=== PATIENT | female | born 1960 | race Caucasian/White ===

== ENCOUNTER 2017-12-25 14:47 | Emergency (ER) | payer OTHER ==
[2017-12-25] MEDS ORDERED: NA CHLORIDE 0.9% 500 ML ONE (15:28)
[2017-12-25] MEDS ORDERED: DEXAMETHASONE 10 MG/ML VIAL ONE (15:28)
--- NOTE | 2017-12-25 15:55 | RAD REPORT ---
EXAM DESCRIPTION: CT - Head Brain Wo Cont - 12/25/2017 3:35 pm CLINICAL HISTORY: Right-sided headache, right-sided numbness COMPARISON: None. TECHNIQUE: Axial 5 mm thick images of the head were obtained without IV contrast. All CT scans are performed using dose optimization technique as appropriate and may include automated exposure control or mA/KV adjustment according to patient size. FINDINGS: No intracranial hemorrhage, mass, edema or shift of mid-line structures. No acute infarcti on changes seen. No abnormal extra-axial fluid collections. Ventricles are normal. Mastoid air cells and visualized portions of the paranasal sinuses are clear. No acute bony findings. IMPRESSION: Negative non-contrast CT head examination.
--- NOTE | 2017-12-25 16:05 | ER ---
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 Transition of care: patient was not received from another setting of care. Onset of symptoms was December 25, 2017. Risk Assessment: Do you want to hurt yourself or someone else? Patient reports no desire to harm self or others. Initial Sepsis Screen: Does the patient meet any 2 criteria? No. Patient's initial sepsis screen is negative. Does the patient have a suspected source of infection? No. Patient's initial sepsis screen is negative. Care prior to arrival: None. 14:51 Method Of Arrival: Ambulatory 14:51 Acuity: DARLENE 3 hj Triage Assessment: 14:57 General: Appears in no apparent distress. uncomfortable, Behavior is calm, cooperative, hj appropriate for age. Pain: Complains of pain in R side of head. 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 - Social history:: Smoking status: Patient/guardian denies using tobacco, Patient/guardian denies using alcohol. - Ebola Screening: : Patient negative for fever greater than or equal to 101.5 degrees Fahrenheit, and additional compatible Ebola Virus Disease symptoms Patient denies exposure to infectious person Patient denies travel to an Ebola-affected area in the 21 days before illness onset. - Family history:: not pertinent. - Hospitalizations: : No recent hospitalization is reported. Screenin:57 Abuse screen: Denies threats or abuse. Denies injuries from another. Nutritional hj screening: No deficits noted. Tuberculosis screening: No symptoms or risk factors identified. Fall Risk None identified. Assessment: 15:15 General: Appears comfortable, Behavior is calm, cooperative. Pain: Complains of pain in aa5 right frontal area and right temporal area Pain does not radiate. Pain currently is 10 out of 10 on a pain scale. Quality of pain is described as throbbing, numb, Pain began 2-3 weeks ago Is continuous. Neuro: Level of Consciousness is awake, alert, obeys commands, Oriented to person, place, time, situation, [employer]er are equal bilaterally Moves all extremities. Gait is steady, Speech is normal, Facial symmetry appears normal, Pupils are PERRLA, Denies weakness dizziness, paresthesias denies facial numbness . Cardiovascular: Heart tones S1 S2 present Rhythm is regular. Respiratory: Airway is patent Respiratory effort is even, unlabored, Respiratory pattern is regular, symmetrical. GI: No signs and/or symptoms were reported involving the gastrointestinal system. : No signs and/or symptoms were reported regarding the genitourinary system. EENT: No signs and/or symptoms were reported regarding the EENT system. Derm: Skin is pink, warm \\T\\ dry. Musculoskeletal: Range of motion: intact in all extremities. 15:40 Reassessment: Patient and/or family updated on plan of care and expected duration. Pain aa5 level reassessed. Patient is alert, oriented x 3, equal unlabored respirations, skin warm/dry/pink. Pt back from CT . 16:35 Reassessment: Patient is alert, oriented x 3, equal unlabored respirations, skin aa5 warm/dry/pink. 16:35 Pain: Pain currently is 9 out of 10 on a pain scale. aa5 Vital Signs: 14:57 BP 133 / 82; Pulse 80; Resp 18; Temp 97.6(O); Pulse Ox 100% on R/A; Weight 86.18 kg; hj Height 5 ft. 1 in. (154.94 cm); Pain 10/10; 15:50 BP 101 / 68; Pulse 68; Resp 16 S; Pulse Ox 98% on R/A; aa5 16:18 BP 115 / 68; Pulse 60; Resp 16 S; Pulse Ox 99% on R/A; aa5 14:57 Body Mass Index 35.90 (86.18 kg, 154.94 cm) ED Course: 14:51 Patient arrived in ED. mr 14:54 Triage completed. hj 14:57 Arm band placed on right wrist. hj 14:59 Patient has correct armband on for positive identification. Placed in gown. Bed in low hj position. Call light in reach. 15:01 Etta Rolle, EFFIE is Primary Nurse. aa5 15:04 Kameron Richmond MD is Attending Physician. rn 15:22 No provider procedures requiring assistance completed. aa5 15:28 Inserted saline lock: 20 gauge in left forearm, using aseptic technique. aa5 15:[address] via wheelchair. vm2 15:34 CT completed. Patient tolerated procedure well. Patient moved back from CT. vm2 15:35 CT Head Brain wo Cont In Process Unspecified. EDPR 16:04 Spike Santiago MD is Referral Physician. rn 16:35 IV discontinued, intact, bleeding controlled, No redness/swelling at site. Pressure aa5 dressing applied. Administered Medications: 15:30 Drug: Decadron - Dexamethasone 10 mg Route: IVP; Site: left forearm; aa5 15:33 Follow up: Response: No adverse reaction aa5 15:40 Drug: NS 0.9% 500 ml Route: IV; Rate: bolus; Site: left forearm; aa5 16:18 Follow up: IV Status: Completed infusion aa5 16:17 Drug: TORadol 30 mg Route: IVP; Site: left forearm; aa5 16:25 Follow up: Response: No adverse reaction aa5 Outcome: 16:04 Discharge ordered by . rn 16:35 Discharged to home ambulatory. aa5 16:35 Condition: stable 16:35 Discharge instructions given to patient, Instructed on discharge instructions, follow up and referral plans. medication usage, Demonstrated understanding of instructions, follow-up care, medications, Prescriptions given X 1. 16:38 Patient left the ED. aa5 Signatures: Dispatcher [employer] [facility] Kaye Mack mr Kameron Richmond MD MD rn Calderon, Audri, RN RN [facility] Donald Meier RN RN Lissette Nielson vm2 Corrections: (The following items were deleted from the chart) 14:59 14:57 Pulse 80bpm; Resp 18bpm; Pulse Ox 100% RA; Temp 97.6F Oral; 86.18 kg; Height 5 hj ft. 1 in.; BMI: 35.9; Pain 10/10; hj 15:31 15:28 Inserted saline lock: 20 gauge in left antecubital area, using aseptic technique. aa5 aa5
--- NOTE | 2017-12-25 16:06 | EDPHYS ---
Physician Documentation [facility] Name: Samina Osborn Age: 57 yrs Sex: Female : 1960 Arrival Date: 12/25/2017 Time: 14:51 Bed 14 Private MD: ED Physician Kameron Richmond HPI: 12/25 15:59 This 57 yrs old Female presents to ER via Ambulatory with complaints of rn Numbness Of Face. 15:59 This 57 yrs old Female presents to ER via Ambulatory with complaints of rn Numbness Of scalp. 15:59 The patient's problem is reported as paresthesias. Onset: The symptoms/episode rn began/occurred 2 week(s) ago. Duration: The episode is continuous. The symptoms are alleviated by nothing. The symptoms are aggravated by nothing. Severity of symptoms: At their worst the symptoms were moderate in the emergency department the symptoms are unchanged. The patient has not experienced similar symptoms in the past. The patient has not recently seen a physician. Reports headache and right scalp numbness for 2-3 weeks, constant, daily, able to sleep, + hx of migraines, no head trauma, no vomiting, no weakness/numbness elsewhere, no vision changes. . 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 - Social history:: Smoking status: Patient/guardian denies using tobacco, Patient/guardian denies using alcohol. - Ebola Screening: : Patient negative for fever greater than or equal to 101.5 degrees Fahrenheit, and additional compatible Ebola Virus Disease symptoms Patient denies exposure to infectious person Patient denies travel to an Ebola-affected area in the 21 days before illness onset. - Family history:: not pertinent. - Hospitalizations: : No recent hospitalization is reported. ROS: 15:59 Constitutional: Negative for fever, chills, and weight loss, Eyes: Negative for injury, rn pain, redness, and discharge, Neck: Negative for injury, pain, and swelling, Cardiovascular: Negative for chest pain, palpitations, and edema, Respiratory: Negative for shortness of breath, cough, wheezing, and pleuritic chest pain, Abdomen/GI: Negative for abdominal pain, nausea, vomiting, diarrhea, and constipation, MS/Extremity: Negative for injury and deformity, Skin: Negative for injury, rash, and discoloration, Neuro: Negative for weakness, and seizure. Exam: 15:59 Radiologist reports: no acute findings rn 16:03 Constitutional: This is a well developed, well nourished patient who is awake, alert, rn and in no acute distress. Head/Face: Normocephalic, atraumatic. Eyes: Pupils equal round and reactive to light, extra-ocular motions intact. Lids and lashes normal. Conjunctiva and sclera are non-icteric and not injected. Cornea within normal limits. Periorbital areas with no swelling, redness, or edema. Neck: Trachea midline, no thyromegaly or masses palpated, and no cervical lymphadenopathy. Supple, full range of motion without nuchal rigidity, or vertebral point tenderness. No Meningismus. Cardiovascular: Regular rate and rhythm with a normal S1 and S2. No gallops, murmurs, or rubs. Normal PMI, no JVD. No pulse deficits. Respiratory: Lungs have equal breath sounds bilaterally, clear to auscultation and percussion. No rales, rhonchi or wheezes noted. No increased work of breathing, no retractions or nasal flaring. Abdomen/GI: Soft, non-tender, with normal bowel sounds. No distension or tympany. No guarding or rebound. No evidence of tenderness throughout. Skin: Warm, dry with normal turgor. Normal color with no rashes, no lesions, and no evidence of cellulitis. MS/ Extremity: Pulses equal, no cyanosis. Neurovascular intact. Full, normal range of motion. Equal circumference. Neuro: Awake and alert, GCS 15, oriented to person, place, time, and situation. Cranial nerves II-XII grossly intact. Motor strength 5/5 in all extremities. Sensory grossly intact. Cerebellar exam normal. Normal gait. + paresthesias over right scalp, not involving face Vital Signs: 14:57 BP 133 / 82; Pulse 80; Resp 18; Temp 97.6(O); Pulse Ox 100% on R/A; Weight 86.18 kg; hj Height 5 ft. 1 in. (154.94 cm); Pain 10/10; 15:50 BP 101 / 68; Pulse 68; Resp 16 S; Pulse Ox 98% on R/A; aa5 16:18 BP 115 / 68; Pulse 60; Resp 16 S; Pulse Ox 99% on R/A; aa5 14:57 Body Mass Index 35.90 (86.18 kg, 154.94 cm) hj MDM: 15:04 Patient medically screened. rn 16:03 Differential diagnosis: metabolic disorder, trigeminal neuralgia, neuropathy, rn complicated migraine. Data reviewed: vital signs, nurses notes, radiologic studies, CT scan, and as a result, I will discharge patient. Counseling: I had a detailed discussion with the patient and/or guardian regarding: the historical points, exam findings, and any diagnostic results supporting the discharge/admit diagnosis, radiology results, the need for outpatient follow up, to return to the emergency department if symptoms worsen or persist or if there are any questions or concerns that arise at home. Special discussion: I discussed with the patient/guardian in detail that at this point there is no indication for admission to the hospital. It is understood, however, that if the symptoms persist or worsen the patient needs to return immediately for re-evaluation. 16:03 Special discussion: Based on the history and exam findings, there is no indication for rn further emergent testing or inpatient evaluation. I discussed with the patient/guardian the need to see the neurologist for further evaluation of the symptoms. 12/25 15:14 Order name: CT Head Brain wo Cont; Complete Time: 15:59 rn 12/25 15:14 Order name: IV Start; Complete Time: 15:30 rn Administered Medications: 15:30 Drug: Decadron - Dexamethasone 10 mg Route: IVP; Site: left forearm; aa5 15:33 Follow up: Response: No adverse reaction aa5 15:40 Drug: NS 0.9% 500 ml Route: IV; Rate: bolus; Site: left forearm; aa5 16:18 Follow up: IV Status: Completed infusion aa5 16:17 Drug: TORadol 30 mg Route: IVP; Site: left forearm; aa5 16:25 Follow up: Response: No adverse reaction aa5 Disposition: 12/25/17 16:04 Discharged to Home. Impression: Headache, Paresthesia of skin. - Condition is Stable. - Discharge Instructions: General Headache Without Cause, Paresthesia. - Prescriptions for Medrol (Moi) 4 mg Oral Tablets, Dose Pack - take 1 tablet by ORAL route as directed - follow package instructions; 1 packet. - Medication Reconciliation Form, Thank You Letter, Antibiotic Education, Prescription Opioid Use form. - Follow up: Spike Santiago MD; When: As needed; Reason: Recheck today's complaints, Re-evaluation by your physician. - Problem is an ongoing problem. - Symptoms have improved. Signatures: Dispatcher [employer] EDMS Kameron Richmond MD MD rn Calderon, Audri RN RN aa5 Donald Meier RN RN Corrections: (The following items were deleted from the chart) 16:38 16:04 12/25/2017 16:04 Discharged to Home. Impression: Headache; Paresthesia of skin. aa5 Condition is Stable. Forms are Medication Reconciliation Form, Thank You Letter, Antibiotic Education, Prescription Opioid Use. Follow up: Spike Santiago; When: As needed; Reason: Recheck today's complaints, Re-evaluation by your physician. Problem is an ongoing problem. Symptoms have improved. rn
[2017-12-25] MEDS ORDERED: KETOROLAC 30 MG/ML INJ ONE (16:17)
== END 2017-12-25 16:38 | disposition home or self-care (01) ==
LOC: ER 14:47
DX: R51 Headache (principal); I10 Essential (primary) hypertension; E78.5 Hyperlipidemia, unspecified
CPT/HCPCS: 70450; 96361; 96374; 96375; 99284; J1100